=== PATIENT | female | born 1945 | race Caucasian/White ===

== ENCOUNTER 2023-10-05 14:16 | Emergency (ER) | payer OTHER ==
[~2023-10-05] VITALS: Ht 152.4 cm; Wt 44.9 kg
[2023-10-05] MEDS ORDERED: SUCCINYLCHOLINE CHLORIDE 20 MG/ML VIAL IV ONE (14:19)
[2023-10-05] MEDS ORDERED: ETOMIDATE 2 MG/ML VIAL IV ONE (14:19)
[2023-10-05] MEDS ORDERED: CLOP75TA15 PO (14:59)
[2023-10-05] MEDS ORDERED: METF-866 PO (14:59)
[2023-10-05] MEDS ORDERED: AMLO5TAB4 PO (14:59)
[2023-10-05] MEDS ORDERED: ATOR40TA PO (14:59)
[2023-10-05 15:04] LABS: BASOPHILS % (AUTO) 0.3 % (0.0-2.0); EOSINOPHILS # (AUTO) 0.1 K/uL (0.0-0.7); EOSINOPHILS % (AUTO) 1.5 % (0.0-6.0); HEMATOCRIT 36 % (33-45); HEMOGLOBIN 11.8 g/dL (11.5-14.8); LYMPHOCYTES # (AUTO) 2.3 K/uL (0.8-4.8); LYMPHOCYTES % (AUTO) 22.9 % (20.0-44.0); MEAN CORPUSCULAR HEMOGLOBIN 26 PG (26.0-33.0); MEAN CORPUSCULAR HGB CONC 33 g/dl (31.0-36.0); MEAN CORPUSCULAR VOLUME 79 fL (82-100); MONOCYTES # (AUTO) 0.9 K/uL (0.1-1.30); NEUTROPHILS # (AUTO) 6.7 K/uL (1.8-8.9); NEUTROPHILS % (AUTO) 66.3 % (43.0-81.0); PLATELET COUNT (AUTO) 406 K/uL (150-450); RED BLOOD CELL COUNT(AUTO) 4.56 MIL/uL (4.0-5.2); RED CELL DISTRIBUTION WIDTH 14.5 % (11.5-15.0); WHITE BLOOD COUNT (AUTO) 10.1 K/uL (4.3-11.0)
[2023-10-05] MEDS: IV NS 0.9% 1,000 ML BAG IV ONE (15:14)
[2023-10-05 15:18] LABS: CARBON DIOXIDE 24 mmol/L (21-32); CHLORIDE 94 mmol/L (98-107); CREATININE 0.9 mg/dL (0.6-1.3); GLUCOSE 209 mg/dL (74-106); POTASSIUM 4.9 mmol/L (3.5-5.1); SODIUM SERUM 133 mmol/L (136-145); UREA NITROGEN, BLOOD 14 mg/dL (7-18)
[2023-10-05 15:24] LABS: ALANINE AMINOTRANSFERASE 39 U/L (12-78); ALBUMIN 2.9 g/dL (3.4-5.0); ALKALINE PHOSPHATASE 168 U/L (46-116); ASPARTATE AMINOTRANSFERASE 41 U/L (15-37); BILIRUBIN,DIRECT 0.1 mg/dL (0.0-0.2); BILIRUBIN,TOTAL 0.3 mg/dL (0.2-1.0); CALCIUM, SERUM 9.7 mg/dL (8.5-10.1); TOTAL PROTEIN, SERUM 7.7 g/dL (6.4-8.2)
[2023-10-05 15:37] LABS: INR 0.99 (0.91-1.10); PARTIAL THROMBOPLASTIN TIME 25.1 SEC (24.3-34.3); PROTHROMBIN TIME 10.5 SECS (9.2-11.1)
[2023-10-05 15:38] LABS: LACTIC ACID 6.3 mmol/L (0.4-2.0)
[2023-10-05 15:40] LABS: APPEARANCE,URINE CLEAR (CLEAR); BILIRUBIN,URINE NEGATIVE (NEGATIVE); BLOOD, URINE TRACE-INTA Ery/uL (NEGATIVE); COLOR,URINE YELLOW (YELLOW); KETONES,URINE NEGATIVE (NEGATIVE); LEUKOCYTE ESTERASE ,URINE NEGATIVE (NEGATIVE); NITRITE, URINE NEGATIVE (NEGATIVE); PROTEIN,URINE 2+ mg/dl (NEGATIVE); UGLUCOSE 1+ mg/dL (NEGATIVE); UROBILINOGEN,URINE 0.2 EU/dL (0.2)
[2023-10-05] MEDS: CEFTRIAXONE 1GM BAG (ER ONLY) 50 ML IV ONE (15:41)
[2023-10-05 15:50] LABS: ADD URINE CULTURE NO; BACTERIA,URINE RARE /HPF (None Seen); MUCUS,URINE Many /LPF (None Seen); WBC,URINE 0-2 /HPF (0-3)
[2023-10-05] MEDS: CLINDAMYCIN 600 MG in IV D5W 100 ML IV ONE (15:50)
[2023-10-05] MEDS ORDERED: PROPOFOL 100 ML ONE (16:06)
[2023-10-05 16:12] LABS: ABG BASE EXCESS -0.7 mmol/L; ABG OXYGEN SATURATION 97.9 % (92.0-98.5); ABG PCO2 36.2 mmHg (35.0-45.0); ABG PH 7.427 (7.350-7.450); ABG PO2 110.4 mmHg (75.0-100.0); ABG TOTAL HEMOGLOBIN 12.3 G/dL (12.0-16.0); COHb 0.3 % (0.5-1.5); MetHb 0.2 % (0.0-1.5); O2Hb 97.4 % (94.0-97.0); PEEP,BG 5 cm H2O; SITE, ABG Left Radial; VENT MODE, BG AC 40%; VT, ABG 400 mL
[2023-10-05] MEDS: PROPOFOL 100 ML IV ONE (16:24)
[2023-10-05 17:19] LABS: ANISOCYTOSIS 1+; BAND % (MANUAL) 4 % (0.0-5.0); EOSINOPHILS % (MANUAL) 2 % (0-4); LYMPHOCYTES % (MANUAL) 24 % (16-48); MONOCYTES % (MANUAL) 11 % (0-11.0); NEUTROPHILS % (MANUAL) 59 (42-76); PLATELET ESTIMATE ADEQU
[2023-10-05 17:20] LABS: OVALOCYTES 1+; ROULEAUX 1+
[2023-10-05 20:10] VITALS: TEMP 99
[2023-10-05 20:50] VITALS: BP 127/60; O2SAT 99
== END 2023-10-05 21:11 | disposition short-term general hospital (02) ==
LOC: ER 14:18
DX: J96.00 Acute respiratory failure, unspecified whether with hypoxia or hypercapnia (principal); F03.90 Unspecified dementia, unspecified severity, without behavioral disturbance, psychotic disturbance, mood disturbance, and anxiety; E11.9 Type 2 diabetes mellitus without complications; I10 Essential (primary) hypertension; Z88.8 Allergy status to other drugs, medicaments and biological substances; Z79.84 Long term (current) use of oral hypoglycemic drugs; Z79.899 Other long term (current) drug therapy; Z20.822 Contact with and (suspected) exposure to COVID-19
CPT/HCPCS: 36415; 36600; 71045-TC; 80048-TC; 80076-TC; 81001; 82803-TC; 83605-TC; 84484-TC; 85025-TC; 85730-TC; 87040-TC; 94799-TC; A4223; J0330; J0696; J3490; J7030; J7060